=== PATIENT | female | born 1965 | race Caucasian/White ===

== ENCOUNTER 2018-03-26 07:13 | Day surgery (SDC) | payer BC ==
[~2018-03-26] VITALS: Ht 177.8 cm; Wt 89.4 kg
[~2018-03-26 07:13] MED LIST: EXCEDRIN MIGRA1 EAC2 PO; FISH OIL 1,0001 EAC2 NG; FLONASE ALLERG9.9 ML NAS; MULTIVITAMINS1 EAC7 PO
--- NOTE | 2018-03-26 08:43 | NUR ---
03/26/18 0843 Randa Slater 0840 PATIENT ARRIVES TO PACU AWAKE, BUT DROWSY, SLEEPING OFF/ON. RESP EVEN AND UNLABORED, NC AT 3 LITERS, TURNED OFF ON ARRIVAL.
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
--- NOTE | 2018-03-27 10:41 | OR ---
[facility] [address], [place] [address] Signed DATE OF OPERATION: 03/26/2018 SURGEON: Mickey Wright MD PREOPERATIVE DIAGNOSIS: Mother and father both with colonic polyps. POSTOPERATIVE DIAGNOSIS: Internal anal skin tags x3. PROCEDURE: Colonoscopy without biopsy. ESTIMATED BLOOD LOSS: None. INDICATIONS: Luiza is a 52-year-old female asked to see me for her initial screening colonoscopy. She told me, I helped her and so she is familiar with the process. In the meantime, she checked in with her parents and found out they both had colonic polyps removed on several occasions. Luiza herself has no lower GI complaints. In the office, I gave her a pamphlet on colonoscopy and we looked at that together along with the risks including, but not limited to gas, bloating, crampy abdominal pain, bleeding, perforation, requiring surgery, and missed diagnosis. We also discussed the need for IV conscious sedation. She had expressed understanding and wish to proceed. PROCEDURE NOTE: Luiza was taken into our endoscopy suite and placed in the left lateral decubitus position. She was given divided doses of 10 mg of Versed and 175 mcg of fentanyl to cover the case. A digital rectal exam was performed and this was unremarkable. The adult colonoscope was introduced and advanced under direct visualization of camera. We did use a little abdominal compression and some additional sedation in order to get the scope all the way into the cecum. Her prep was quite good. The scope was then slowly withdrawn. We found no pathology throughout the entire colon or rectum. Upon retroflexion of the scope, she had three small internal anal skin tags. After this, the gas was suctioned out. The colonoscope removed. Luiza tolerated the procedure quite well. RECOMMENDATIONS: I will see Luiza back in 10 years for repeat colonoscopy. Electronically Signed By: MICKEY WRIGHT MD 03/27/18 1041 PATIENT NAME: LUIZA OLVERA OPERATIVE REPORT DATE OF : 69 REPORT #: [id number] PHYSICIAN: MICKEY WRIGHT MD PCP: [facility] [place] PAC REPORT IS CONFIDENTIAL AND NOT TO BE RELEASED WITHOUT AUTHORIZATION [address] [address] Signed MD RANDY Monsivais/PONCE /[id number] cc: MD So Monsivais PA Copies: MICKEY WRIGHT MD ~ Electronically Signed By: MICKEY WRIGHT MD 03/27/18 1041 PATIENT NAME: LUIZA OLVERA OPERATIVE REPORT DATE OF : 69 REPORT #: [id number] PHYSICIAN: MICKEY WRIGHT MD PCP: [facility] [place] PAC REPORT IS CONFIDENTIAL AND NOT TO BE RELEASED WITHOUT AUTHORIZATION
== END 2018-03-26 09:10 | disposition home or self-care (01) ==
LOC: DS 07:13 → OPS 07:13 → DS 08:15 → OPS 08:15
PROVIDERS: Colon & Rectal Surgery
PROC: 0DJD8ZZ Inspection of Lower Intestinal Tract, Via Natural or Artificial Opening Endoscopic (ICD-10-PCS; principal; 2018-03-26 08:15)
DX: Z12.11 Encounter for screening for malignant neoplasm of colon (principal); K64.4 Residual hemorrhoidal skin tags; Z83.71 Family history of colonic polyps; Z79.82 Long term (current) use of aspirin; Z79.51 Long term (current) use of inhaled steroids; Z79.899 Other long term (current) drug therapy
CPT/HCPCS: 99153; G0500; J2250; J3010; J7120

== ENCOUNTER 2023-12-04 06:32 | Day surgery (SDC) | payer BC ==
[~2023-12-04] VITALS: Ht 177.8 cm; Wt 97.5 kg
[~2023-12-04 06:32] MED LIST changes: +MIDAZOLAM HCL 5 MG/5 ML VIAL IV PRN; +TRAZODONE HCL50 MG NG; +VALTREX500 MG PO; +fentaNYL citrate 100 MCG/2 ML VIAL IV PRN
[2023-12-04] MEDS ORDERED: fentaNYL citrate 100 MCG/2 ML VIAL ONE ×2 (06:41→07:32)
[2023-12-04] MEDS ORDERED: MIDAZOLAM HCL 5 MG/5 ML VIAL ONE ×2 (06:42→07:30)
[2023-12-04 06:46] VITALS: BP 120/83
[2023-12-04] MEDS ORDERED: VENTOLIN HFA18 GM INH (06:50)
[2023-12-04] MEDS ORDERED: AMOXICILLIN500 MG PO (06:59)
[2023-12-04] MEDS ORDERED: IBLOOD GLUCOSE TEST STRIP 1 EA TEST VI PRN (07:00)
[2023-12-04] MEDS ORDERED: LACTATED RINGER'S 1,000 ML IV SCH (07:00)
[2023-12-04] MEDS ORDERED: LIDOCAINE HCL 1% 5 ML SDV INJ ONE (07:00)
--- NOTE | 2023-12-04 08:04 | NUR ---
12/04/23 0804 Damari Resendez 0800-PATIENT ARRIVED TO PACU ON 2L NC RR EVEN. PATIENT DROWSY REACTIVE TO VERBAL STIMULI DENIES PAIN OR NAUSEA. LAYING LEFT LATERAL ABDOMEN SOFT. IVF INFUSING. ORIENTED TO PACU. PATIENT DOZES BACK TO SLEEP
[2023-12-04 08:49] VITALS: BP 131/83
--- NOTE | 2023-12-04 09:45 | OR ---
[facility] [address], [place] [address] Signed DATE OF OPERATION: 12/04/2023 SURGEON: Mickey Wright MD PREOPERATIVE DIAGNOSES: 1. Mother and father with history of multiple adenomatous colonic polyps. 2. Internal anal skin tags. POSTOPERATIVE DIAGNOSES: 1. 4 mm internal anal skin tags x3. 2. 3 mm polyps x2 at 4 cm. 3. Minimal internal hemorrhoids. PROCEDURE: Colonoscopy with hot biopsy. ESTIMATED BLOOD LOSS: None. INDICATIONS: Luiza is a 58-year-old female who came to see me for a followup colonoscopy. She has no lower GI complaints. She actually brought endoscopy reports for her mother and father. They are both in their early 80s at this point. They had tubular adenomatous polyps removed over multiple colonoscopies. As a result, Luiza is on the five year rotation. I helped her with her first colonoscopy in 2018 at the age of 52. She had just a few internal anal skin tags. She had no polyps at that time. I gave Luiza a pamphlet on colonoscopy. She recalls the nature of the test. There is risk including, but not limited to gas bloating, crampy abdominal pain, bleeding, perforation requiring surgery, and missed diagnosis. We also reviewed the written instructions for bowel prep line by line. It is the same prep she took five years ago. She recalls the need for IV conscious sedation. She had done well with 10 mg of Versed and 175 mcg of fentanyl. She recalls the need for an adult person to take her home afterwards. She had expressed understanding and wished to proceed. PROCEDURE IN DETAIL: The patient was taken into our endoscopy suite and placed in the left lateral decubitus position. She was given divided doses of 10 mg of Versed and 100 mcg of fentanyl. A digital rectal exam was performed. There were no external hemorrhoids. She had good sphincter tone. There were no masses. The adult colonoscope was introduced and advanced under direct visualization of camera. She needed a little bit extra sedation Electronically Signed By: MICKEY WRIGHT MD 12/04/23 0945 PATIENT NAME: LUIZA OLVERA OPERATIVE REPORT DATE OF : 69 REPORT #: [id number] PHYSICIAN: MICKEY WRIGHT MD PCP: RAHAT PERRY MD REPORT IS CONFIDENTIAL AND NOT TO BE RELEASED WITHOUT AUTHORIZATION [facility] [address], [place] [address] Signed and abdominal compression to get around hepatic flexure and down into the cecum itself. Her prep was quite excellent. We could easily see the appendiceal orifice and ileocecal valve. The scope was then slowly withdrawn. She has a somewhat long redundant colon. There was no diverticulosis. The rectum had two tiny 3 mm polyp just above the anal canal. There was very minimal internal hemorrhoid tissue. She had three small 4 mm internal anal skin tags that we could see. We used a hot biopsy forceps to remove those two tiny polyps as they were just above the internal hemorrhoid columns. After this, the gas was suctioned out. The colonoscope removed. uLiza tolerated the procedure quite well. RECOMMENDATIONS: I will see Luiza back in my office in 7 to 14 days to review her results. I suspect she will stay on the five year rotation. Mickey Wright MD ALB/MODL /[id number] cc: MD Mickey Sauceda MD Copies: MICKEY WRIGHT MD ~ Electronically Signed By: MICKEY WRIGHT MD 12/04/23 0945 PATIENT NAME: LUIZA OLVERA XUAN OPERATIVE REPORT DATE OF : 69 REPORT #: [id number] PHYSICIAN: MICKEY WRIGHT MD PCP: RAHAT PERRY MD REPORT IS CONFIDENTIAL AND NOT TO BE RELEASED WITHOUT AUTHORIZATION
--- NOTE | 2023-12-10 17:12 | PATH ---
[facility] [address] [place], [place] [address] Signed SPECIMEN(S): A RECTAL POLYP SPECIMEN SOURCE: A. RECTAL POLYP CLINICAL HISTORY: Colonoscopy. History of colon polyp. FINAL PATHOLOGIC DIAGNOSIS: Rectal polyp: - Colonic mucosa with hyperplastic features (multiple fragments). JVR:rachel MICROSCOPIC EXAMINATION: Histologic sections of all submitted blocks are examined by light microscopy. These findings, together with the gross examination, support the pathologic diagnosis. GROSS DESCRIPTION: The specimen, labeled and designated "Madril, 1" and designated on the requisition "4 cm polypectomy, rectum," is received in formalin and consists of three moreno soft tissue fragments, ranging from 0.2-0.4 cm. Entirely submitted in (A1). AC (under the direct supervision of a pathologist) The Gross Description was prepared using a voice recognition system. The report was reviewed for accuracy; however, sound-alike word errors, addition and/or deletions may occur. If there is any question about this report, please contact Client Services. ADDITIONAL NOTES: Immunohistochemical and/or in situ hybridization studies if performed in this case included appropriate positive controls that reacted as expected. This test was developed and its performance characteristics determined by [facility]. It has not been cleared or approved by the U.S. Food and Drug Administration. The FDA has determined that such clearance or approval is not necessary. This test is used for clinical purposes. It should not be regarded as investigational or for research. [facility] is certified under the Clinical Laboratory Improvement Amendments of 1988 (CLIA) as qualified to perform high complexity clinical laboratory testing. PATIENT NAME: LUIZA OLVERA PATHOLOGY DATE OF : 69 REPORT #: [id number] PHYSICIAN: GERTRUDE BAEZA PCP: RAHAT PERRY MD REPORT IS CONFIDENTIAL AND NOT TO BE RELEASED WITHOUT AUTHORIZATION [address] [place], [place] [address] Signed PERFORMING LABORATORY: Technical component was performed by [facility], [address] [place] [address] (CLIA# [id number]). Professional interpretation was performed by [facility], [address] [place] [id number] (CLIA#: [id number]). Diagnostician: Richy Denis MD Pathologist Electronically Signed 12/10/2023 Copies: ~ PATIENT NAME: LUIZA OLVERA PATHOLOGY DATE OF : 69 REPORT #: [id number] PHYSICIAN: GERTRUDE BAEZA PCP: RAHAT PERRY MD REPORT IS CONFIDENTIAL AND NOT TO BE RELEASED WITHOUT AUTHORIZATION
== END 2023-12-04 09:00 | disposition home or self-care (01) ==
LOC: OPS 06:32 → DS 06:32 → OPS 07:30
PROVIDERS: ATTEND Colon & Rectal Surgery
PROC: 0DBQ8ZX Excision of Anus, Via Natural or Artificial Opening Endoscopic, Diagnostic (ICD-10-PCS; principal; 2023-12-04 07:30)
DX: K64.4 Residual hemorrhoidal skin tags (principal); K62.1 Rectal polyp; K64.8 Other hemorrhoids; G47.00 Insomnia, unspecified; E78.00 Pure hypercholesterolemia, unspecified; Z79.899 Other long term (current) drug therapy
CPT/HCPCS: 99153; G0500; J2250; J3010; J7121